=== PATIENT | female | born 1950 | race Caucasian/White ===

== ENCOUNTER → 2017-03-28 | Outpatient (CLI) | payer MEDICARE ==
[~2017-03-28] MED LIST: ASPIRIN81 M1 PO; ASPIRIN81 M2 PO; IRON SUPPLEMENT1 TAB PO; LISINOPRIL-HCTZ1 T15 PO; LOPRESSOR PO; LORTAB 7.51 TAB 7.5/ DOB; LOW DOSE ASPIRI81 M2 PO; PAXIL PO; PHENERGAN25 MG PO; SIMVASTATIN10 MG PO; TOPROL XL 50 MG50 MG PO; TYLENOL #3; ZESTORETIC PO; ZOCOR20 MG PO
--- NOTE | ~2017-03-28 | BD1 ---
[facility] A Service of [facility] & [facility] RADIOLOGY TEXT RESULTS PATIENT: MAGALY BILLS LOCATION: [facility] : 52 UNIT #: [id number] AGE: [address]: Susan See MD SEX: F ORDER DR: [id number] [facility] [address] [place], [place] [address] [id number] O MR#: [id number] Acc #: [id number] NAME: MAGALY BILLS : 1950 SEX: F STUDY DATE/TIME: 03/28/2017 10:51 UNIT: [facility] ROOM: STUDY DESCRIPTION: BD Dexa Bone Dens 1+ Site Attending Physician: Susan See M.D. Referring Physician: Susan See M.D. Ordering Physician: Susan See M.D. Primary Care Physician: Susan See M.D. MEDICAL IMAGING REPORT This report is preliminary unless electronic signature is present EXAM DXA scan, 03/28/2017 HISTORY Status post menopause with no hormone replacement therapy. Osteopenia. Hysterectomy at age 42 with removal of both ovaries. Hypertension with blood pressure medication for 20 years. FINDINGS Bone mineral density in the lumbar spine, from L1-L4, was 1.02 g/cm2, which is 0.2 standard deviations below the mean when compared to the young adult reference population, which is within the range of normal. This is 1.6 standard deviations above the mean when compared to the age-match population. Bone mineral density in the left femoral neck was 0.775 g/cm2, which is 0.7 standard deviations below the mean when compared to the young adult reference population, which is within the range of normal. This is 0.9 standard deviations above the mean when compared to the age-match population. IMPRESSION Bone mineral density in the lumbar spine and the left hip within the range of normal. Dictated by... Ismael Oreilly M.D. THIS IS AN ELECTRONICALLY VERIFIED REPORT Ismael Oreilly M.D. at 03/29/2017 2:21 PM [facility] TD: 03/29/2017 00:26 JOB #: [id number] [facility] A Service of [facility] RADIOLOGY TEXT RESULTS PATIENT: MAGALY BILLS LOCATION: [facility] : 52 UNIT #: [id number] AGE: [address]: Susan See MD SEX: F ORDER DR: MEDICAL IMAGING REPORT Page 1 of 1 COPY
--- NOTE | ~2017-03-28 | MY29 ---
[facility] A Service of [facility] RADIOLOGY TEXT RESULTS PATIENT: MAGALY BILLS LOCATION: [facility] : 52 UNIT #: [id number] AGE: [address]: Susan See MD SEX: F ORDER DR: [id number] [place] [id number] [place], [place] [address] [id number] O MR#: [id number] Acc #: [id number] NAME: MAGALY BILLS : 1950 SEX: F STUDY DATE/TIME: 03/28/2017 10:52 UNIT: [facility] ROOM: STUDY DESCRIPTION: MY MATEO SCREENING W/ CAD BILAT Attending Physician: Susan See M.D. Referring Physician: Susan See M.D. Ordering Physician: Susan See M.D. Primary Care Physician: Susan See M.D. MEDICAL IMAGING REPORT This report is preliminary unless electronic signature is present EXAMINATION Bilateral digital screening mammogram CAD DATE 03/28/2017 HISTORY No personal history of breast cancer. Personal history of cervical cancer with radiation therapy in 1989. No current complaints. COMPARISON Bilateral screening mammogram 04/17/2014 and 06/20/2008. FINDINGS CC and MLO views were obtained of each breast utilizing digital technique and reviewed with an FDA-approved CAD device. Scattered fibroglandular densities are present bilaterally. A circumscribed nodule the upper, outer left breast central third unchanged, likely representing benign intramammary lymph node. No new or suspicious nodule, architectural distortion, or clustered microcalcification is seen. Benign round calcifications in the anterior third of each breast. IMPRESSION 1. Routine bilateral screening mammogram is recommended in 1 year. Patient's over the age of 40 are entered into a reminder system with target due date for the next mammogram. BIRADS: 2 Benign findings Dictated by... [facility] A Service of [facility] RADIOLOGY TEXT RESULTS PATIENT: MAGALY BILLS LOCATION: [facility] : 52 UNIT #: [id number] AGE: [address]: Susan See MD SEX: F ORDER DR: Shobha Ring M.D. THIS IS AN ELECTRONICALLY VERIFIED REPORT Shobha Ring M.D. at 03/30/2017 8:49 AM [facility]/saumya TD: 03/28/2017 15:45 JOB #: [id number] MEDICAL IMAGING REPORT Page 1 of 1 COPY
== END | disposition home or self-care (01) ==
LOC: CWCC 10:22
DX: Z12.31 Encounter for screening mammogram for malignant neoplasm of breast (principal); M89.9 Disorder of bone, unspecified
CPT/HCPCS: 77080; G0202

== ENCOUNTER → 2017-04-25 | Outpatient (CLI) | payer MEDICARE | END | disposition home or self-care (01) | LOC: CECH 12:35 | DX: I51.7 Cardiomegaly (principal); I10 Essential (primary) hypertension | CPT/HCPCS: 93306 ==